=== PATIENT | male | born 1975 | race Caucasian/White ===

== ENCOUNTER 2017-06-04 19:28 | Emergency (ER) | payer SELFPAY ==
[~2017-06-04] VITALS: Ht 175.3 cm; Wt 77.1 kg
[~2017-06-04 19:28] MED LIST: CARI350T PO
--- NOTE | 2017-06-04 20:10 | NUR ---
DR POOL ESPARZA MD AT BEDSIDE FOR MSE.
[2017-06-04] MEDS ORDERED: CHLORDIAZEPOXIDE HCL 25 MG CAPSULE ONE (20:53)
[2017-06-04] MEDS ORDERED: CHLORDIAZEPOXIDE HCL 25 MG CAPSULE PO ONE (21:00)
--- NOTE | 2017-06-04 21:00 | NUR ---
PT TAKEN DOWN TO CT.
--- NOTE | 2017-06-04 21:30 | NUR ---
LAB AT BEDSIDE FOR BLOOD DRAW
[2017-06-04 21:34] LABS: BASOPHILS # (AUTO) 0.1 K/uL (0.0-8.0); BASOPHILS % (AUTO) 1.5 % (0.0-2.0); EOSINOPHILS # (AUTO) 0.1 K/uL (0.0-0.7); EOSINOPHILS % (AUTO) 1.5 % (0.0-7.0); HEMOGLOBIN 14.7 g/dL (12.5-16.3); LYMPHOCYTES # (AUTO) 1.1 K/uL (20.0-40.0); MEAN CORPUSCULAR HEMOGLOBIN 30.9 uug (23.8-33.4); MEAN CORPUSCULAR HGB CONC 34 g/dL (32.5-36.3); MEAN CORPUSCULAR VOLUME 90.8 fL (73.0-96.2); MONOCYTES # (AUTO) 0.5 K/uL (2.0-10.0); MONOCYTES % (AUTO) 9.8 % (0.0-11.0); NEUTROPHILS % (AUTO) 64.2 % (38.5-71.5); PLATELET COUNT (AUTO) 291 K/uL (152-348); RED BLOOD CELL COUNT(AUTO) 4.74 MIL/uL (4.06-5.63); WHITE BLOOD COUNT (AUTO) 4.7 K/uL (3.6-10.2)
[2017-06-04 21:37] LABS: CREATININE 0.8 mg/dL (0.6-1.3); POTASSIUM 4.8 mmol/L (3.5-5.1)
[2017-06-04 21:59] LABS: BILIRUBIN,DIRECT 0.1 mg/dL (0.0-0.2); BILIRUBIN,TOTAL 0.4 mg/dL (0.2-1.0); TOTAL PROTEIN, SERUM 7.5 g/dL (6.4-8.2)
--- NOTE | 2017-06-04 22:34 | NUR ---
PT RESTING IN A POSITION OF COMFORT. NO DISTRESS NOTED. VSS. BREATHING EVEN AND UNLABORED.
[2017-06-04] MEDS ORDERED: LORAZEPAM 2 MG/1 ML VIAL ONE (22:43)
[2017-06-04] MEDS ORDERED: LORAZEPAM 2 MG/1 ML VIAL IV ONE (22:45)
--- NOTE | 2017-06-04 23:10 | NUR ---
Patient discharged to home in stable conditon. Written and verbal after care instructions given. Patient verbalizes understanding of instructions. IV REMOVED W/ CATHETER INTACT. PRESSURE APPLIED. NO BLEEDING NOTED AT SITE. DENIES DIZZINESS. AMBULATED FROM ER W/ STEADY GAIT.
[2017-06-04 23:42] VITALS: BP 122/80
== END 2017-06-04 23:43 | disposition home or self-care (01) ==
LOC: ER 19:31
DX: F13.239 Sedative, hypnotic or anxiolytic dependence with withdrawal, unspecified (principal); R56.9 Unspecified convulsions; J45.909 Unspecified asthma, uncomplicated; Z88.8 Allergy status to other drugs, medicaments and biological substances; Z91.048 Other nonmedicinal substance allergy status; Z79.899 Other long term (current) drug therapy
CPT/HCPCS: 36415; 70030-TC; 70450; 85025; 85730; 93005; A4663; J2060